=== PATIENT | male | born 1950 | race Caucasian/White ===

== ENCOUNTER 2021-05-12 09:18 | Emergency (ER) | payer OTHER, MEDICARE, SELFPAY ==
--- NOTE | ~2021-05-12 | CT_ITS ---
EXAMINATION: CT BRAIN AND CT CERVICAL SPINE WITHOUT CONTRAST. CLINICAL INFORMATION: Pain. No trauma COMPARISON: None TECHNIQUE: 5 mm thin axial and reformatted 2 mm thin sagittal and coronal images of brain were obtained. Subsequently axial 3 mm thin and reformatted 2 mm thin sagittal and coronal images of cervical spine were obtained. [facility] 1386 FINDINGS: Brain: There is no acute intra-axial, extra-axial bleed, masses or midline shift. There is no acute infarction evolution. There is no edema. The lateral ventricles are symmetrical in size and configuration without enlargement. Bone windows reveal no calvarial abnormality. There is no scalp soft tissue abnormality. There is mild mucoperiosteal thickening involving bilateral frontal and ethmoid sinuses. Cervical spine: There is mild straightening of cervical lordosis. The vertebral heights and alignment is normal. There is loss of C5-C6 disc height with mild ventral spondylosis. No lytic or sclerotic process seen. The craniovertebral junction and the C1-C2 alignment is normal with mild degenerative spurring at the C1-C2 disc level.. Mild uncovertebral hypertrophic changes at C3-C4, left C4-C5, bilateral C5-C6 and C6-C7 disc levels resulting in moderate neural foraminal narrowing at these disc levels. The airway is widely patent. The lung apices are clear. The thyroid lobes are asymmetrical but no focal abnormality seen. Visualized bilateral submandibular and parotid glands is unremarkable. No abnormal neck lymph nodes or mass seen. CT/CT cervical spine wo con IMPRESSION: No acute intracranial process seen. No acute fracture, dislocation or subluxation cervical spine. There are degenerative disc changes with ventral and posterior spondylosis C5-6/7, C6-C7 and C7-T1 disc levels. Narrowing of neural foramina as extending above.
--- NOTE | ~2021-05-12 | CT_ITS ---
EXAMINATION: CT BRAIN AND CT CERVICAL SPINE WITHOUT CONTRAST. CLINICAL INFORMATION: Pain. No trauma COMPARISON: None TECHNIQUE: 5 mm thin axial and reformatted 2 mm thin sagittal and coronal images of brain were obtained. Subsequently axial 3 mm thin and reformatted 2 mm thin sagittal and coronal images of cervical spine were obtained. [facility] 1386 FINDINGS: Brain: There is no acute intra-axial, extra-axial bleed, masses or midline shift. There is no acute infarction evolution. There is no edema. The lateral ventricles are symmetrical in size and configuration without enlargement. Bone windows reveal no calvarial abnormality. There is no scalp soft tissue abnormality. There is mild mucoperiosteal thickening involving bilateral frontal and ethmoid sinuses. Cervical spine: There is mild straightening of cervical lordosis. The vertebral heights and alignment is normal. There is loss of C5-C6 disc height with mild ventral spondylosis. No lytic or sclerotic process seen. The craniovertebral junction and the C1-C2 alignment is normal with mild degenerative spurring at the C1-C2 disc level.. Mild uncovertebral hypertrophic changes at C3-C4, left C4-C5, bilateral C5-C6 and C6-C7 disc levels resulting in moderate neural foraminal narrowing at these disc levels. The airway is widely patent. The lung apices are clear. The thyroid lobes are asymmetrical but no focal abnormality seen. Visualized bilateral submandibular and parotid glands is unremarkable. No abnormal neck lymph nodes or mass seen. CT/CT head/brain wo con IMPRESSION: No acute intracranial process seen. No acute fracture, dislocation or subluxation cervical spine. There are degenerative disc changes with ventral and posterior spondylosis C5-6/7, C6-C7 and C7-T1 disc levels. Narrowing of neural foramina as extending above.
[2021-05-12 09:27] VITALS: BP 148/97; PULSE 92; RESP 18; TEMP 36.8; O2SAT 99; BMI 24.8
--- NOTE | 2021-05-12 11:12 | ED_ITS ---
HPI - Neck Pain/Injury General Chief Complaint: Neck Pain/Injury Stated Complaint: bad head pain Time Seen by Provider: 05/12/21 11:02 Source: patient Mode of arrival: ambulatory Limitations: no limitations History of Present Illness HPI Narrative: 71-year-old male here with reports of left-sided neck pain which radiates up to the left side of the head x several weeks with no known injury or trauma. Patient has been taking ibuprofen intermittently. He was seen last week by his primary care doctor at the [facility] and was prescribed Flexeril 3 times daily as needed. Patient tells me he is taking this medication but having continued pain. Pain is worsened with trying to sleep. Patient tells me he can not get comfortable in the pillow. Pain is also worsened if he tries to move his head from side to side. The pain radiates into the head. There is no reports of dizziness, vision changes, fever, chills, vomiting. No reports of difficulty swallowing or breathing. Related Data Previous Rx's Medication Instructions Recorded diazepam 5 mg tablet (Valium) 5 mg PO BID PRN #14 tab 05/12/21 naproxen 500 mg tablet 500 mg PO BID PRN #20 tab 05/12/21 Allergies Allergy/AdvReac Type Severity Reaction Status Date / Time No Known Allergies Allergy Unverified 11/06/19 15:15 Review of Systems Review of Systems: Yes all other systems are reviewed and are negative Constitutional: Constitutional: Reports no additional constitutional complaints, Denies body ache(s), Denies chills, Denies fever(s), Reports headache(s) and Denies weakness Eyes: Eyes: Reports no additional eye complaints and Denies change in vision ENT: Reports system reviewed and no additional complaints, except as documented, Denies dizziness, Reports headache(s), Denies nasal congestion, Denies nasal discharge and Reports neck pain Cardiovascular: Cardiovascular: Reports no additional cardiovascular complaints, Denies chest pain, Denies leg edema and Denies dyspnea Respiratory: Respiratory: Reports no additional respiratory complaints, Denies cough and Denies dyspnea Gastrointestinal: Gastrointestinal: Reports no additional gastrointestinal complaints, Denies abdominal pain, Denies diarrhea, Denies nausea and Denies vomiting Genitourinary: Genitourinary: Denies urinary incontinence Musculoskeletal: Musculoskeletal: Reports no additional musculoskeletal complaints, Denies back pain, Denies arthralgias, Denies joint swelling, Reports neck pain, Denies numbness and Denies tingling Integumentary/Breasts: Skin/Breast: Reports system reviewed and no additional complaints, except as docu and Denies rash Neurologic: Reports system reviewed and no additional complaints, except as documented, Denies Abnormal speech present, Denies dizziness, Reports headache(s), Denies numbness, Denies tingling and Denies weakness PMFSH Past Medical History Attestation statement: The following information was validated with the patient. Source: old records reviewed and nursing notes reviewed Medical History (Updated 05/12/21 @ 12:09 by Naty Pate NP) No known health problems Social History Social History Advance Directives: No Advance Directives Information Provided: Yes Physical Exam Vital Signs: Vital Signs: Last Vital Signs Temp 98.2 F 05/12/21 09:27 Pulse 92 05/12/21 09:27 Resp 18 05/12/21 09:27 BP 148/97 H 05/12/21 09:27 Pulse Ox 99 05/12/21 09:27 BMI result Body Mass Index 24.8 Const: General: cooperative, healthy appearing, comfortable and no acute distress Orientation/consciousness: patient oriented x3 Limitations: no limitations HEENT: Head: Yes normal to inspection Ears: hearing grossly normal bila terally and TM's normal bilaterally General nose exam: Normal external nose present Face and sinus: Yes normal facial exam Mouth: Normal oral and palatal mucosa present Throat: Yes posterior oropharynx normal, Yes tonsils normal and Yes uvula midline Eyes: General: appearance normal, both eyes and all related structures Pupils: Equal, round and reactive pupils present Neck: Other: Patient reports pain over the left trapezius and rhomboid muscles with palpable muscle spasm on exam. Patient has pain if he tries to rotate the head to the le ft and has limited range of motion due to pain. No cervical midline tenderness, no step-offs or deformities. No obvious swelling noted Neck: Yes normal visual inspection, Yes no lymphadenopathy and Yes no meningeal signs Chest: Chest palpation & inspection: normal inspection of the chest Resp: Effort & Inspection: normal respiratory effort Auscultation: clear to auscultation bilaterally Cardio: Rate: regular rate Rhythm: regular rhythm Peripheral pulses: Peripheral pulses 2+ throughout GI: Inspection: Yes normal to inspection Palpation (GI): Soft to palpation and nontender Auscultation: normal bowel sounds Back/Spine/Pelvis: Thoracic/Lumbar Spine: thoracic and lumbar spine normal to inspection Skin: General skin exam: no rashes or lesions noted Neuro: General: patient oriented x3, no meningeal signs, no focal motor deficits and normal sensation to monofilament Cranial nerves: Yes Equal, round and reactive pupils present Cognition (Neuro): normal cognition Speech: No Abnormal speech present Gait exam (Neuro): Normal gait present Motor exam (neuro): 5/5 motor strength present throughout Extrem: General: Yes normal to inspection Course Course Course Narrative: 71 yo male here with persistent left sided neck pain which radiates into left side of the head x weeks despite using a NSAID/flexeril. Pain worsened with movement of head and palpation which makes me think this is more MS and likely torticollis. However, d/t persistent symptoms will check imaging. No obvious swelling. No difficulty swallowing or breathing. Normal neurological exam. Will provide analgesia and re-assess. 1230-CT head and neck are consistent with degenerative changes. No other acute abnormality. Exam is consistent with torticollis. I will change the patient's Flexeril to Valium. We also discussed some heat and gentle stretching and requesting a physical therapy consult from his primary care doctor. Low concern for epidural abscess with no h/o immunocompromised state, no fever, IVDA. Low concern for soft tissue mass/malignancy with no reports of weight loss, diff swallowing or breathing with normal exam (no swelling). Reviewed worrisome signs and symptoms of when to return to the emergency department. Comfortable discharge home. MDM - Neck Pain/Injury Medical Records Attestation: I reviewed the patient's medical records. Lab Data Attestation: I reviewed the patient's lab results. Imaging Data ct head/neck: Attestation: I personally reviewed and interpreted this imaging study as follows: Radiologist's impression: FINDINGS: Brain: There is no acute intra-axial, extra-axial bleed, masses or midline shift. There is no acute infarction evolution. There is no edema. The lateral ventricles are symmetrical in size and configuration without enlargement. Bone windows reveal no calvarial abnormality. There is no scalp soft tissue abnormality. There is mild mucoperiosteal thickening involving bilateral frontal and ethmoid sinuses. Cervical spine: There is mild straightening of cervical lordosis. The vertebral heights and alignment is normal. There is loss of C5-C6 disc height with mild ventral spondylosis. No lytic or sclerotic process seen. The craniovertebral junction and the C1-C2 alignment is normal with mild degenerative spurring at the C1-C2 disc level.. Mild uncovertebral hypertrophic changes at C3-C4, left C4-C5,? bilateral C5-C6 and C6-C7 disc levels resulting in moderate neural foraminal narrowing at these disc levels. The airway is widely patent. The lung apices are clear. The thyroid lobes are asymmetrical but no focal abnormality seen. Visualized bilateral submandibular and parotid glands is unremarkable. No abnormal neck lymph nodes or mass seen. CT/CT cervical spine wo con IMPRESSION: No acute intracranial process seen. ? No acute fracture, dislocation or subluxation cervical spine. There are degenerative disc changes with ventral and posterior spondylosis C5-6/7, C6-C7 and C7-T1 disc levels. Narrowing of neural foramina as extending abov Discharge Plan Discharge Clinical Impression: Torticollis Patient Disposition: Home, Self-Care Instructions: Spasmodic Torticollis (ED) Additional Instructions: Heat to the area Gentle stretching Speak to your primary care doctor about a physical therapy referral Your x-ray showed degenerative changes of the cervical spine Prescriptions: New naproxen 500 mg tablet 500 mg PO BID PRN (Reason: pain) Qty: 20 0RF diazepam [Valium] 5 mg tablet 5 mg PO BID PRN (Reason: muscle spasm) Qty: 14 0RF Referrals: Lamar Kitchen MD [Primary Care Provider] - 2 days
[2021-05-12] MEDS: Ketorolac Tromethamine 60 MG/2 ML VIAL IM (11:43)
--- NOTE | 2021-05-12 13:02 | PC.NURSE ---
1215 PT SITTING UP IN CHAIR. STATES MINIMAL RELIEF FROM TORADOL. RESULTS OF TESTING PROVIDED TO PATIENT BY PROVIDER. PT AWARE AND AGREEABLE TO PLAN
== END 2021-05-12 12:20 | disposition home or self-care (01) ==
PROVIDERS: Emergency Provider Emergency Medicine; PCP Internal Medicine
DX: M43.6 Torticollis (principal); M54.2 Cervicalgia
CPT/HCPCS: 70450; 72125; 96372; 99284; J1885

== ENCOUNTER 2021-12-15 11:46 | Outpatient (REF) | payer OTHER, SELFPAY ==
[2021-12-15 12:10] LABS: MANUAL DIFF FLAG NO
--- NOTE | 2021-12-15 12:11 | ECG_ITS ---
Test Reason : CARDIAC ARRHYTHMIA Blood Pressure : / mmHG Vent. Rate : 076 BPM Atrial Rate : 076 BPM P-R Int : 176 ms QRS Dur : 084 ms QT Int : 360 ms P-R-T Axes : 033 041 030 degrees QTc Int : 405 ms Normal sinus rhythm Normal ECG No previous ECGs available Referred By: Kirti Koch Electronically Signed By:MARIO HELMS MD
[2021-12-15 12:39] LABS: Basophils Absolute Auto 0.1 X10*3/uL (0.0-0.2); Basophils Percent Auto 0.9 % (0-2); Eosinophils Absolute Auto 0.3 X10*3/uL (0.0-0.4); Eosinophils Percent Auto 3.8 % (0-4); Hematocrit 42.6 % (42.0-52.0); Hemoglobin 14.9 g/dl (14.0-18.0); Imm Gran Abs Auto 0.02 X10*3/uL (0.00-0.03); Imm Gran Pct Auto 0.2 % (0.0-0.4); Lymphocytes Absolute Auto 2.5 X10*3/uL (1.2-4.9); Lymphocytes Percent Auto 29.9 % (20-40); Mean Corpuscular Hemoglobin 32.3 pg (27.0-33.0); Mean Corpuscular Volume 92.4 fL (80.0-98.0); Monocytes Absolute Auto 0.7 X10*3/uL (0.1-1.2); Monocytes Percent Auto 8.9 % (2-11); Neutrophils Absolute Auto 4.6 x10*3/uL (2.0-8.3); Neutrophils Percent Auto 56.3 % (45-73); Platelet Count 185 X10*3/uL (160-400); Red Blood Count 4.61 X10*6/uL (4.60-5.80); White Blood Count 8.2 X10*3/uL (4.8-10.8)
[2021-12-15 13:11] LABS: Alanine Aminotransferase 10 U/L (0-40); Albumin Level 4.1 g/dL (3.5-5.0); Alkaline Phosphatase 51 U/L (39-117); Anion Gap 13 (12-20); Aspartate Amino Transferase 16 U/L (5-37); Bilirubin Total 0.3 mg/dL (0.0-1.0); Blood Urea Nitrogen 20 mg/dL (9-16); Calcium 9.5 mg/dL (8.4-10.2); Carbon Dioxide 24 mmol/L (22-29); Chloride 105 mmol/L (96-108); Estimated Glomerular Filt Rate 60; Glucose Random 101 mg/dL (60-115); Potassium 4.3 mmol/L (3.3-5.1); Sodium 138 mmol/L (135-145); Total Protein 7.1 g/dL (6.5-8.0)
[2021-12-16 04:48] LABS: HBS Num1 60.32 mIU/mL (0-7.99); HBc Num1 8.37 S/CO (0.00-0.79); HBsAGNum1 0.19 S/CO (0.00-0.99); Hepatitis A Antibody IgM 0.13 Index (0-0.79); Hepatitis B Surface Antigen Negative (Negative); ~Hepatitis A Antibody IgM Nonreactive (Nonreactive); ~Hepatitis B Surface Antibody REACTIVE (Nonreactive); ~Hepatitis C Antibody Nonreactive (Nonreactive)
[2021-12-16 05:24] LABS: HBc Num2 8.29 S/CO; HBc Num3 8.24 S/CO; Hepatitis B Core Antibody Reactive (Nonreactive)
== END 2021-12-15 11:47 | disposition home or self-care (01) ==
LOC: HO.LAB 11:46
PROVIDERS: Visit Provider Nurse Practitioner
DX: Z01.818 Encounter for other preprocedural examination (principal); D12.6 Benign neoplasm of colon, unspecified; R17 Unspecified jaundice; I49.9 Cardiac arrhythmia, unspecified
CPT/HCPCS: 36415; 80053; 85025; 86704; 86706; 86709; 86803; 87340; 93005; 99202

== ENCOUNTER 2022-04-28 07:46 | Day surgery (SDC) | payer OTHER, SELFPAY ==
[2022-04-25 14:26] VITALS: BMI 26.3
--- NOTE | 2022-04-27 13:47 | HO.ANESPROP2 ---
Documented by User: Sandhya Escobedo NP 04/27/22 13:48 HPI - Anesthesia Eval Consult details Narrative: 72yo M for Colonoscopy PMFSH Active Problems Active Problems: All Active Problems (Updated 04/25/22 @ 14:26 by Yomaira Hodgson RN) ADOLPH (obstructive sleep apnea) (Acute) Asthma (Acute) Allergic rhinitis (Acute) High cholesterol (Acute) Migraines (Acute) Generalized osteoarthritis (Acute) Polyneuropathy (Acute) Panic disorder (Acute) PTSD (post-traumatic stress disorder) (Acute) Tubular adenoma of colon (Acute) Pre-op examination (Acute) Jaundice (Acute) Irregular heart beat (Acute) Past Medical History Medical History (Updated 04/25/22 @ 14:26 by Yomaira Hodgson RN) Asthma Elevated cholesterol History of COVID-19 Jaw fracture Migraines Osteoarthritis PTSD (post-traumatic stress disorder) Sleep apnea Family History Family History (Updated 12/15/21 @ 11:12 by MARGY Hess) Mother Pancreatic cancer Surgical History Surgical History (Updated 12/15/21 @ 11:11 by MARGY Hess) Hx of colonoscopy Social History Social History Patient Tobacco Use Status: Former Tobacco user Use of substances other than those prescribed or required for medical reasons: Yes Are you DNR?: No Advance Directives: No Advance Directives Information Provided: Yes Recently lost weight without trying: No Nutrition Risks: No Nutritional Risk Meds Allergies Allergy/AdvReac Type Severity Reaction Status Date / Time No Known Allergies Allergy Unverified 12/15/21 11:11 Exam Exam Date and Time: April 27, 2022 1347 Height,Weight and Vital Signs: Height 5 ft 11 in Weight 85.729 kg Pertinent Lab Results Pertinent Lab Results: Laboratory Tests 12/15/21 12/15/21 12:09 12:09 WBC 8.2 Hgb 14.9 Hct 42.6 Plt Count 185 Sodium 138 Potassium 4.3 Chloride 105 Carbon Dioxide 24 BUN 20 H Creatinine 1.20 Assessment and Plan Assessment Anesthesia Assessment: Chart Reviewed Documented by User: Gabby John MD 04/28/22 09:16 HPI - Anesthesia Eval Consult details Narrative: 72yo M for Colonoscopy personal ho polyp PMFSH Past Medical History Medical History (Updated 04/25/22 @ 14:26 by Yomaira Hodgson RN) Asthma Elevated cholesterol History of COVID-19 Jaw fracture Migraines Osteoarthritis PTSD (post-traumatic stress disorder) Sleep apnea Family History Family History (Updated 12/15/21 @ 11:12 by MARGY Hess) Mother Pancreatic cancer Family history of problems with anesthesia: No Surgical History Surgical History (Updated 12/15/21 @ 11:11 by MARGY Hess) Hx of colonoscopy History of Problems with Anesthesia: No Social History Social History Patient Tobacco Use Status: Former Tobacco user Use of substances other than those prescribed or required for medical reasons: Yes Are you DNR?: No Advance Directives: No Advance Directives Information Provided: Yes Recently lost weight without trying: No Nutrition Risks: No Nutritional Risk Meds Allergies Allergy/AdvReac Type Severity Reaction Status Date / Time No Known Allergies Allergy Unverified 12/15/21 11:11 Exam Airway Mallampati Class: II TM Dist: >3cm Neck ROM: Full Denture: Upper and Lower Heart: rr Lungs: cta Assessment and Plan Assessment Anesthesia Assessment: Anesthesia Plan Discussed Final Anesthetic Review Family History of Problems with Anesthesia: No History of Problems with Anesthesia: No NPO: Yes ASA Class: II Final Preanesthetic Review: No Changes in Pt Med Stat, Meds/Allgs Chart Reviewed, Consent Obtained/Reviewed and Anes Risks/Benef Reviewed Patient Risk: Low Procedure Risk: Low Anesthetic Plan Anesthetic Plan: MAC: Disposition: Standard PACU
--- NOTE | 2022-04-28 08:30 | MHC.SHP ---
Pre-Procedural Eval Section A Date of Service: 04/28/22 Section B Chief Complaint: Benign neoplasm of colon, unspecified Relevant Family History (Specify if Yes): No Relevant Social History: None Present Medications: see Short Stay Collaborative assessment Medical History: Significant History (Obstructive sleep apnea Asthma Smoker Allergic rhinitis History of jaw fracture High cholesterol Migraines Generalized osteoarthritis Polyneuropathy Panic disorder/PTSD Tubular adenomas-2017 colonoscopy, Pleet Dentures) History of Previous Operations: Relevant previous surgery/procedure and date(s) (jaw surgery) Allergies: Allergies Allergy/AdvReac Type Severity Reaction Status Date / Time No Known Allergies Allergy Unverified 12/15/21 11:11 Review of Systems Sugical H&P ROS: Negative: Constitution, Cardiovascular, Respiratory, Neurological, Psychiatric, Hem-Onc, Allergic/Immunologic, Gastrointestinal, Genitourinary, Musculoskeletal, Integumentary, Endocrine and Eyes/Ears/Nose/Throat Exam Surgical H&P Exam: Normal: HEENT, Normal: Heart, Normal: Lungs, Normal: Extremities, Normal: Abdomen, Normal: Skin and Normal: Neurological Plan Diagnosis/Plan: Unchanged I have reviewed the history and physical and performed a pertinent physical examination on my patient. No changes have occurred unless specified. Time Spent With Patient Time: Total time managing care of this patient today ____ minutes.
[2022-04-28 08:58] VITALS: BMI 27.8
[2022-04-28 09:05] VITALS: BP 134/93; PULSE 109; RESP 16; TEMP 36.4; O2SAT 97
[2022-04-28] MEDS: Lactated Ringers 1,000 ML 100 ML IVCONT (09:23)
--- NOTE | 2022-04-28 09:49 | P.OP_ITS ---
Operative Note Operative Note Date of Service: 04/28/22 Narrative: Operative Information Procedure Description: Colonoscopy Indication: screening Anesthesia: MAC COLONOSCOPY Instrument: Olympus variable stiffness pediatric scope 190L Colonoscopy Monitoring: Vital signs and clinical assessment, continuous EKG monitoring, Pulse oximetry, Carbon Dioxide monitoring and blood pressure monitoring were done throughout the procedure. Colon withdrawal time was 7 minutes. Procedure: The patient was placed in the left lateral decubitis position and pre-procedure medications were administered. After a digital rectal examination of the ano-rectum, the video colonoscope was inserted into the rectum and advanced through the colon to the cecum/TI. The colonoscope was slowly withdrawn in a retrograde panoramic fashion and the colon mucosa was carefully examined including a retroflexed view of the rectum. Findings and interventions are described below. Procedure Difficulty: easy Findings: Terminal Ileum-normal Cecum:normal Ascending Colon: normal Transverse Colon -normal Descending Colon:normal Sigmoid Colon: moderate diverticulosis Rectum: Retroflexion with small internal hemorrhoids, grade I, x 2 sessile polyps 6-8 mm removed with cold forceps Anorectum - normal Colon preparation: [place] Bowel Preparation Scale Right colon; 2 Transverse colon: 3 Left colon; 2 (0 = Unprepared colon segment with mucosa not seen due to solid stool that cannot be cleared. 1 = Portion of mucosa of the colon segment seen, but other areas of the colon segment not well seen due to staining, residual stool and/or opaque liquid. 2 = Minor amount of residual staining, small fragments of stool and/or opaque liquid, but mucosa of colon segment seen well. 3 = Entire mucosa of colon segment seen well with no residual staining, small fragments of stool or opaque liquid) Impression and Post Procedure Diagnosis: polyps internal hemorrhoids diverticular disease Plan: High fiber diet leaflet Avoid straining at stool, epsom salts and sitz bath, anusol supps or cream Repeat Colonoscopy in 5 years if adenomatous polyps, 10 yrs if hyperplastic if health allows or earlier if clinically indicated Above findings were reviewed with the patient and relevant handouts were provided if indicated.
[2022-04-28 09:54] VITALS: BP 116/70; PULSE 88; RESP 18; TEMP 37.3; O2SAT 98
[2022-04-28 10:09] VITALS: BP 132/78; PULSE 81; RESP 18; TEMP 36.6; O2SAT 97
== END 2022-04-28 10:52 | disposition home or self-care (01) ==
PROVIDERS: PCP Internal Medicine; Visit Provider Internal Medicine Gastroenterology
PROC: 0DJD8ZZ Inspection of Lower Intestinal Tract, Via Natural or Artificial Opening Endoscopic (ICD-10-PCS; CPT 45378; principal; 2022-04-28 09:20)
DX: Z12.11 Encounter for screening for malignant neoplasm of colon (principal); Z86.010 Personal history of colon polyps; K62.1 Rectal polyp; K57.30 Diverticulosis of large intestine without perforation or abscess without bleeding; K64.0 First degree hemorrhoids; G47.33 Obstructive sleep apnea (adult) (pediatric); E78.00 Pure hypercholesterolemia, unspecified; J45.909 Unspecified asthma, uncomplicated; F43.10 Post-traumatic stress disorder, unspecified; F41.0 Panic disorder [episodic paroxysmal anxiety]; J30.5 Allergic rhinitis due to food; R19.7 Diarrhea, unspecified; I49.9 Cardiac arrhythmia, unspecified; Z79.1 Long term (current) use of non-steroidal anti-inflammatories (NSAID); Z79.899 Other long term (current) drug therapy; Z87.891 Personal history of nicotine dependence
CPT/HCPCS: 45380; 88305

== ENCOUNTER → 2022-05-16 10:00 | Outpatient (BNVA) | payer OTHER, SELFPAY | PROVIDERS: PCP Internal Medicine; Visit Provider Nurse Practitioner | DX: D12.6 Benign neoplasm of colon, unspecified (principal); I49.9 Cardiac arrhythmia, unspecified; R76.8 Other specified abnormal immunological findings in serum | CPT/HCPCS: 99212 ==